=== PATIENT | female | born 1985 | race Caucasian/White ===

== ENCOUNTER 2017-10-23 17:40 | Emergency (ER) | payer OTHER ==
[~2017-10-23] VITALS: Ht 165.1 cm; Wt 83.9 kg
[~2017-10-23 17:40] MED LIST: ACETAMINOPHEN-1 EAC1 PO; CEPHALEXIN 500500 M3 PO; IBUPROFEN 800800 M1 PO; NOHOMEMEDICATIONS
[2017-10-23 20:04] LABS: ABSOLUTE BASOPHILS 0.1 thou/uL (0.0-0.2); ABSOLUTE EOSINOPHILS 0.2 thou/uL (0.0-0.7); ABSOLUTE LYMPHOCYTES 3.9 thou/uL (0.8-5.3); ABSOLUTE MONOCYTES 0.6 thou/uL (0.0-1.2); ABSOLUTE NEUTROPHILS 5.9 thou/uL (1.6-8.1); BASOPHILS 0.7 %; EOSINOPHILS 1.9 %; HEMATOCRIT 41.7 % (37.0-47.0); LYMPHOCYTES 36.5 %; MCH 29.8 pg (26.0-34.0); MCHC 33.7 g/dL (28.0-37.0); MCV 88.5 fL (80.0-100.0); MONOCYTES 5.4 %; MPV 8.6 fl. (7.2-11.1); NUCLEATED RBCS 0 /100WBC; PLATELET COUNT* 317 thou/uL (150-400); POLYS 55.5 %; RBC 4.71 mil/uL (4.20-5.00); RDW-CV 14.2 % (10.5-14.5); URINE BILIRUBIN NEGATIVE (Negative); URINE BLOOD TRACE (Negative); URINE CLARITY CLEAR; URINE COLOR YELLOW; URINE GLUCOSE-RANDOM NEGATIVE (Negative); URINE KETONES NEGATIVE (Negative); URINE LEUKOCYTES-REFLEX NEGATIVE (Negative); URINE NITRITE-REFLEX NEGATIVE (Negative); URINE PROTEIN NEGATIVE (Negative); URINE UROBILINOGEN 0.2 E.U./dl (0.2-1.0); WBC 10.7 thou/uL (4.0-11.0)
[2017-10-23 20:24] LABS: CALCIUM 8.6 mg/dL (8.5-10.1); CREATININE 0.9 mg/dL (0.6-1.3); POTASSIUM 3.6 mmol/L (3.5-5.1)
[2017-10-23 20:28] LABS: ALBUMIN 3.6 g/dL (3.4-5.0); TOTAL BILIRUBIN 0.2 mg/dL (<0.1-1.0); TOTAL PROTEIN 7.3 g/dL (6.4-8.2)
[2017-10-23] MEDS ORDERED: CIPRO500 M1 PO (21:25)
[2017-10-23] MEDS ORDERED: ZOFRAN4 MG PO (21:25)
[2017-10-23] MEDS ORDERED: FLAGYL500 MG PO (21:25)
[2017-10-23] MEDS ORDERED: MOBIC15 MG PO (21:33)
[2017-10-23 21:54] VITALS: BP 92/59
== END 2017-10-23 21:55 | disposition home or self-care (01) ==
LOC: M.ERS 17:40
PROVIDERS: Nurse Practitioner Family
DX: K52.9 Noninfective gastroenteritis and colitis, unspecified (principal)

== ENCOUNTER 2018-04-07 02:20 | Emergency (ER) | payer OTHER ==
[~2018-04-07] VITALS: Ht 162.6 cm; Wt 86.2 kg
[~2018-04-07 02:20] MED LIST changes: +CIPRO500 M1 PO; +FLAGYL500 MG PO; +MOBIC15 MG PO; +ZOFRAN4 MG PO
[2018-04-07] MEDS ORDERED: PENICILLIN VK250 MG PO (03:13)
[2018-04-07] MEDS ORDERED: HYDROCODON-ACE1 EAC8 PO (03:13)
[2018-04-07 03:35] VITALS: BP 117/69
[2018-04-07] MEDS ORDERED: PRENATAL (10:03)
== END 2018-04-07 03:35 | disposition home or self-care (01) ==
LOC: M.ERS 02:20
DX: O26.891 Other specified pregnancy related conditions, first trimester (principal); K04.7 Periapical abscess without sinus; Z3A.12 12 weeks gestation of pregnancy

== ENCOUNTER 2018-04-07 09:47 | Emergency (ER) | payer MEDICAID ==
[~2018-04-07] VITALS: Ht 162.6 cm; Wt 86.2 kg
[~2018-04-07 09:47] MED LIST changes: +HYDROCODON-ACE1 EAC8 PO; +PENICILLIN VK250 MG PO
[2018-04-07] MEDS ORDERED: PRENATAL (10:03)
[2018-04-07 10:07] LABS: ABSOLUTE BASOPHILS 0.1 thou/uL (0.0-0.2); ABSOLUTE EOSINOPHILS 0.1 thou/uL (0.0-0.7); ABSOLUTE LYMPHOCYTES 3.1 thou/uL (0.8-5.3); ABSOLUTE MONOCYTES 0.6 thou/uL (0.0-1.2); ABSOLUTE NEUTROPHILS 5.2 thou/uL (1.6-8.1); BASOPHILS 0.7 %; EOSINOPHILS 1.3 %; HEMATOCRIT 38.1 % (37.0-47.0); HEMOGLOBIN 13.1 gm/dL (12.0-15.0); LYMPHOCYTES 34.1 %; MCH 30.5 pg (26.0-34.0); MCHC 34.4 g/dL (28.0-37.0); MCV 88.8 fL (80.0-100.0); MONOCYTES 6.3 %; MPV 8.9 fl. (7.2-11.1); NUCLEATED RBCS 0 /100WBC; PLATELET COUNT* 257 thou/uL (150-400); POLYS 57.6 %; RBC 4.29 mil/uL (4.20-5.00); RDW-CV 14.3 % (10.5-14.5)
[2018-04-07 10:18] LABS: APTT 24.7 Seconds (25.0-31.3); PROTIME 10.2 Seconds (9.20-11.50)
[2018-04-07 10:46] LABS: ALBUMIN 3.3 g/dL (3.4-5.0); CREATININE 0.6 mg/dL (0.6-1.3); POTASSIUM 3.8 mmol/L (3.5-5.1); TOTAL BILIRUBIN 0.3 mg/dL (<0.1-1.0); TOTAL PROTEIN 6.9 g/dL (6.4-8.2)
[2018-04-07 11:14] VITALS: BP 120/78
== END 2018-04-07 10:47 | disposition short-term general hospital (02) ==
LOC: M.ERS 09:47
PROVIDERS: Family Medicine
DX: O20.0 Threatened abortion (principal); F17.210 Nicotine dependence, cigarettes, uncomplicated; Z3A.12 12 weeks gestation of pregnancy